=== PATIENT | male | born 1960 | race Caucasian/White ===

== ENCOUNTER 2018-04-19 19:15 | Emergency (ER) | payer MEDICARE, OTHER ==
[~2018-04-19] VITALS: Ht 167.6 cm; Wt 68.0 kg
[2018-04-19 19:15] VITALS: BP 154/97; PULSE 98; RESP 20; TEMP 97.9; O2SAT 98
[~2018-04-19 19:15] MED LIST: LORA-474 PO; OLAN15 PO; TEMA15 PO; VALP250UDC PO; ZYPR10TA9 PO
[2018-04-19] MEDS ORDERED: SODIUM CHLOR 0.9% 1000 ML INJ 1,000 ML IV SCH (19:17)
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
[2018-04-19] MEDS ORDERED: diphenhydrAMINE HCL 50 MG/ML VIAL IV PUSH ONE (19:30)
[2018-04-19] MEDS ORDERED: LORazepam 2 MG/ML VIAL IV PUSH ONE (19:30)
[2018-04-19 20:01] LABS: AUTOMATED NEUTROPHIL # 6.1 TH/MM3 (1.8-7.7); BASOPHIL # 0.1 TH/MM3 (0-0.2); BASOPHIL % 0.7 % (0.0-2.0); EOSINOPHIL # 0.1 TH/MM3 (0-0.4); EOSINOPHIL % 0.8 % (0.0-4.0); HEMATOCRIT 42.8 % (39.0-51.0); HEMOGLOBIN 14.2 GM/DL (13.0-17.0); LYMPH % 15.4 % (9.0-44.0); LYMPHOCYTE # 1.2 TH/MM3 (1.0-4.8); MEAN CELL VOLUME 79.6 FL (80.0-100.0); MEAN CORPUSCULAR HEMOGLOBIN 26.5 PG (27.0-34.0); MEAN CORPUSCULAR HGB CONC 33.3 % (32.0-36.0); MEAN PLATELET VOLUME 7.7 FL (7.0-11.0); MONOCYTE # 0.5 TH/MM3 (0-0.9); NEUT % 77.1 % (16.0-70.0); PLATELET COUNT 229 TH/MM3 (150-450); RED BLOOD COUNT 5.37 MIL/MM3 (4.50-5.90)
[2018-04-19 20:31] LABS: ALBUMIN 4.4 GM/DL (3.4-5.0); AST (GOT) 13 U/L (15-37); BLOOD UREA NITROGEN 5 MG/DL (7-18); CALCIUM 8.6 MG/DL (8.5-10.1); CHLORIDE 101 MEQ/L (98-107); CREATININE 0.77 MG/DL (0.60-1.30); GLOMERULAR FILTRATION RATE 105 ML/MIN (>89); GLUCOSE,RANDOM 120 MG/DL (74-106); MAGNESIUM 2.1 MG/DL (1.5-2.5); SODIUM (NA) 133 MEQ/L (136-145)
[2018-04-19 20:32] LABS: ALT (GPT) 17 U/L (12-78)
[2018-04-19 20:34] LABS: ALKALINE PHOSPHATASE 63 U/L (45-117); TOTAL BILIRUBIN ADULT 0.5 MG/DL (0.2-1.0); TOTAL PROTEIN 7.4 GM/DL (6.4-8.2)
[2018-04-19] MEDS ORDERED: DIPH25CA PO (21:21)
[2018-04-19] MEDS ORDERED: DIVA250T3 PO (21:21)
[2018-04-19] MEDS ORDERED: DOCU100C15 PO (21:21)
[2018-04-19] MEDS ORDERED: LEVO75TA3 PO (21:21)
[2018-04-19] MEDS ORDERED: OLAN15TA (21:21)
--- NOTE | 2018-04-20 20:49 | EKG ---
Date Performed: 04/19/2018 Time Performed: 20:53:39 PTAGE: 58 years EKG: Sinus rhythm NORMAL ECG PREVIOUS TRACING : 04/19/2018 20.52 Since the previous tracing, no significant change noted DOCTOR: Demetra Garcia Interpretating Date/Time 04/20/2018 20:47:40
== END 2018-04-19 22:07 | disposition home or self-care (01) ==
LOC: NEPD 19:15
DX: R25.1 Tremor, unspecified (principal); F41.8 Other specified anxiety disorders; I10 Essential (primary) hypertension; G47.00 Insomnia, unspecified; F25.9 Schizoaffective disorder, unspecified; Z87.820 Personal history of traumatic brain injury; Z72.0 Tobacco use
CPT/HCPCS: 80053; 80164; 82140; 83735; 85025; 93005; 96361; 96374; 96375; 99284; J1200; J2060; J7030